=== PATIENT | male | born 1945 | race Caucasian/White ===

== ENCOUNTER → 2022-06-13 | Outpatient (CLI) | payer MEDICARE, SELFPAY | END | disposition home or self-care (01) | DX: I49.3 Ventricular premature depolarization (principal) | CPT/HCPCS: 93225; 93226 ==

== ENCOUNTER 2022-08-03 02:04 | Emergency (ER) | payer MEDICARE, SELFPAY ==
[2022-08-03 02:05] VITALS: BP 169/70; PULSE 90; RESP 19; TEMP 36.5; O2SAT 95; BMI 29.6
[2022-08-03 02:07] VITALS: O2SAT 97
[2022-08-03] MEDS: dexAMETHasone 10 MG/ML Vial PO.IVFORM (03:16)
[2022-08-03] MEDS: Ipratropium/Albuterol Sulfate 3 ML AMPUL.NEB INHALATION (03:22)
[2022-08-03 03:23] VITALS: PULSE 69; RESP 16
--- NOTE | 2022-08-03 03:31 | RAD_ITS ---
INDICATION: cough EXAMINATION/TECHNIQUE: X-RAY - XR Chest 2 Views COMPARISON: FINDINGS: LINES/DEVICES: None. LUNGS: No consolidation, edema or effusion. No pneumothorax. MEDIASTINUM AND CARDIOVASCULAR STRUCTURES: Cardiac silhouette not enlarged. Central airways and mediastinal contour are unremarkable. BONES AND SOFT TISSUES: Unremarkable. RAD/Chest PA and Lateral IMPRESSION: No radiographic evidence of acute cardiopulmonary disease. Electronically Signed: Chandler Chinchilla MD at 3:49 EDT ,
--- NOTE | 2022-08-03 04:12 | EX.ED.DYSGE1 ---
HPI History of Present Illness Chief Complaint: Shortness of Breath Narrative Narrative: Patient is a 76-year-old male with history of hypertension. He states that he has been seeing his family doctor secondary to persistent nasal congestion and cough. He does report remote history of smoking but denies any history of COPD or need for supplemental oxygen. He denies any known sick contacts fevers or chills. He states his family at her place him on medications but despite doing this there has been no symptom improvement and has been having difficulty sleeping secondary to the congestion and cough and therefore comes in for evaluation [facility] Medical History (Updated 08/03/22 @ 04:[address] Haroon Pinon, DO) Hypertension Home Medications albuterol sulfate 90 mcg/actuation aerosol inhaler (Ventolin HFA) 2 puff inhalation Q4H PRN PRN Wheezing #1 device 08/03/22 [Rx Last Taken Unknown] cetirizine 10 mg tablet 10 mg PO DAILY 08/03/22 [History Last Taken Unknown] hydrocodone-homatropine 5 mg-1.5 mg/5 mL (5 mL) oral syrup (Hycodan) 5 ml PO Q6H PRN cough 6 days #80 mL 08/03/22 [Rx Last Taken Unknown] losartan 50 mg tablet 50 mg PO DAILY 08/03/22 [History Last Taken Unknown] prednisone 20 mg tablet 20 mg PO DAILY 7 days #7 tabs 08/03/22 [Rx Last Taken Unknown] promethazine 6.25 mg-codeine 10 mg/5 mL syrup 5 ml PO 4X/DAY PRN PRN cough 7 days #140 mL 08/03/22 [Rx Last Taken Unknown] Allergy/AdvReac Type Severity Reaction Status Date / Time No Known Allergies Allergy Verified 08/03/22 02:07 Social History Smoking Status: Never smoker [facility] ED Constitutional Constitutional ED: Denies chills or fever(s) ENT ENT ED: Reports rhinorrhea and sore throat Cardiovascular Cardiovascular: Denies chest pain Respiratory/Chest Respiratory/Chest: Reports cough; Denies dyspnea Gastrointestinal Gastrointestinal: Denies abdominal pain, diarrhea, nausea or vomiting Genitourinary Genitourinary ED: Denies dysuria Musculoskeletal Musculoskeletal: Denies myalgias Integumentary Denies rash Neurologic Neurologic: Denies headache(s) Hematologic/Lymphatic Hematologic/Lymphatic: Denies easy bleeding or easy bruising EXAM Physical Exam Const Vital Signs: 08/03/22 02:05 08/03/22 02:07 08/03/22 03:23 Temperature 97.7 F L Temperature Source Temporal Pulse Rate 90 69 Respiratory Rate 19 H 16 Respiratory Effort Normal Non-Labored Respiratory Depth Normal Respiratory Pattern Normal Normal Blood Pressure 169/70 H Blood Pressure Mean 103 Pulse Ox 95 Oxygen Delivery Method Room Air Room Air Positive well nourished and well developed General Appearance ED: well developed HEENT Reports moist mucous membranes HEENT Narrative: Nasal mucosa is hyperemic and boggy with enlarged inferior nasal turbinate There is cobblestoning the posterior pharynx consistent with sinus drainage but no airway edema or compromise Eyes PERRL and EOMs intact bilaterally Neck supple and no JVD Chest Wall palpation of chest normal Chest Narrative: No bony deformity or crepitus noted Resp normal respiratory effort Resp Narrative: Breath sounds are slightly diminished throughout with diffuse expiratory wheeze however no nasal flaring retractions tachypnea or accessory muscle use Cardio regular rate and regular rhythm Extremity normal to inspection Extremity Narrative: No asymmetric edema no pitting edema negative Homans' sign bilaterally Neuro oriented x3 and CN's II-XII intact bilaterally Sensorium / Orientation: alert Psych mental status grossly normal Skin no rashes or lesions noted MDM MDM MDM Narrative Medical decision making narrative: Patient presented to the ER in no acute respiratory distress with stable vital. He reported a remote history of smoking but no previous diagnosis of COPD or emphysema or need for supplemental oxygen. On exam he has diffuse expiratory wheezing concerning for lung inflammation that can be seen with upper respiratory tract infection versus pneumonia. As he is in no distress with stable pulse ox and normal temperature I do not feel need for treatment other than chest x-ray and breathing medication. Chest x-ray revealed no obvious lung pathology and that the patient was treated with steroids and albuterol he did have improvement of his breath sounds and his work of breathing remained normal. At this time symptoms are most consistent with lung inflammation from a viral source. However as he does not have respiratory distress or need for supplemental oxygen he will be given symptomatic medications and discharged home. Radiography Diagnostic Testing: Clinical Impression(s) from Imaging Studies Chest X-Ray 08/03/22 03:31 IMPRESSION: No radiographic evidence of acute cardiopulmonary disease. Electronically Signed: Chandler Chinchilla MD at 3:49 EDT , Chest x-ray as interpreted by the emergency medicine physician reveals no acute infiltrate pneumothorax or pleural effusion Discharge Plan Triage Chief Complaint: Shortness of Breath ED Provider: Haroon Pinon Dx/Rx/DC Orders Clinical Impression: Upper respiratory tract infection, Bronchospasm Instructions: ED URI, Viral W/ Wheezing (Adult) Prescriptions: New albuterol sulfate [Ventolin HFA] 90 mcg/actuation HFA aerosol inhaler 2 puff inhalation Q4H PRN PRN (Reason: Wheezing) Qty: 1 0RF prednisone 20 mg tablet 20 mg PO DAILY 7 Days Qty: 7 0RF promethazine-codeine 6.25-10 mg/5 mL syrup 5 ml PO 4X/DAY PRN PRN (Reason: cough) 7 Days Qty: 140 0RF hydrocodone-homatropine [Hycodan] 5-1.5 mg/5 mL (5 mL) syrup 5 ml PO Q6H PRN (Reason: cough) 6 Days Qty: 80 0RF No Action losartan 50 mg tablet 50 mg PO DAILY Label Comments: take 1 tablet by mouth once daily cetirizine 10 mg tablet 10 mg PO DAILY Label Comments: take 1 tablet by mouth once daily Primary Care Provider: TRISHA ART Referrals: TRISHA ART [Other] Disposition Disposition: Home, Self Care Discharge Date/Time: 08/03/22 04:21
== END 2022-08-03 04:21 | disposition home or self-care (01) ==
PROVIDERS: Emergency Provider Emergency Medicine; Visit Provider Emergency Medicine
DX: J06.9 Acute upper respiratory infection, unspecified (principal); I10 Essential (primary) hypertension; Z87.891 Personal history of nicotine dependence; J98.01 Acute bronchospasm
CPT/HCPCS: 71046; 94640; 99283

== ENCOUNTER 2022-09-04 19:18 | Emergency (ER) | payer MEDICARE, SELFPAY ==
[2022-09-04] VITALS (7 sets, daily range): BP systolic 147–170; BP diastolic 64–86; PULSE 78–89; RESP 18–19; TEMP 36.3; O2SAT 88–96; BMI 29.7
--- NOTE | 2022-09-04 19:21 | RAD_ITS ---
STUDY: X-RAY CHEST REASON FOR EXAM: Male, 76 years old. SOB TECHNIQUE: Single AP portable view of the chest. COMPARISON: 08/03/2022 FINDINGS: The lungs are clear and expanded. There is no demonstrated pleural abnormality. Normal size heart. Normal mediastinum and miladys. Normal visualized pulmonary arteries. Normal visualized aortic arch and descending thoracic aorta. Normal visualized thoracic spine. Normal visualized ribs, clavicles, and shoulders. There is no demonstrated abnormality of the visualized soft tissue structures of the upper abdomen. RAD/Chest 1 View (Portable) IMPRESSION: Normal x-ray examination of the chest. Electronically Signed: Jermain Thurman MD at 19:51 EDT ,
--- NOTE | 2022-09-04 19:40 | ED.VIS.DYS ---
HPI <MIGUEL ANGEL Manjarrez - Last Filed: 09/04/22 20:06> History of Present Illness Chief Complaint: Shortness of Breath Narrative Narrative: 76-year-old male presents with shortness of breath. He has had sinus congestion, cough and shortness of breath since December 2021. He saw a hide dyer and had a normal CT scan of his chest. He is scheduled to have a CT of his sinuses and they want to order PFTs. He uses an albuterol inhaler but it does not really help. He states he has never been a smoker and does not have a diagnosis of COPD. Today he was walking and started to cough and feel more short of breath. No chest pain. He states he was here about a month ago with the same symptoms and got a breathing treatment and steroid which helped. PENDING SALE TO [facility] <MIGUEL ANGEL Manjarrez - Last Filed: 09/04/22 20:06> PENDING SALE TO [facility] Medical History Hypertension Infected sebaceous cyst of skin Home Medications albuterol sulfate 90 mcg/actuation aerosol inhaler (Ventolin HFA) 2 puff inhalation Q4H PRN PRN Wheezing #1 device 08/03/22 [Rx Last Taken Unknown] losartan 50 mg tablet 50 mg PO DAILY 08/03/22 [History Last Taken Unknown] prednisone 20 mg tablet 20 mg PO DAILY 7 days #7 tabs 08/03/22 [Rx Last Taken Unknown] promethazine 6.25 mg-codeine 10 mg/5 mL syrup 5 ml PO 4X/DAY PRN PRN cough 7 days #140 mL 08/03/22 [Rx Last Taken Unknown] amoxicillin 875 mg-potassium clavulanate 125 mg tablet 1 tab PO BID #20 tabs 08/16/22 [Rx Last Taken Unknown] prednisone 20 mg tablet 40 mg (2 x 20 mg) PO DAILY 4 days #8 tabs 09/04/22 [Rx Last Taken Unknown] Allergy/AdvReac Type Severity Reaction Status Date / Time No Known Allergies Allergy Verified 09/04/22 19:21 Social History Smoking Status: Never smoker ROS <MIGUEL ANGEL Manjarrez - Last Filed: 09/04/22 20:06> ROS ED ROS Narrative Constitutional: Negative for fever, chills, malaise. CVS: Negative for palpitations, chest pain, syncope. Respiratory: Positive for shortness of breath, cough. Negative for orthopnea. GI: Negative for abdominal pain, nausea, vomiting. EXAM <MIGUEL ANGEL Manjarrez - Last Filed: 09/04/22 20:06> Physical Exam Narrative Exam Narrative: CONST: Patient sitting in no acute distress. EYES: Normal inspection. NECK: Normal inspection. No retractions, no JVD. RESP: Speaking in full sentences in no respiratory distress. On auscultation there is diffuse expiratory wheezing. CVS: Regular rate and rhythm, no murmur, no gallop. SKIN: Color normal, no rash, warm, dry, intact. EXTREMITIES: Normal appearance, no pedal edema. NEURO: Oriented x4. PSYCH: Normal affect. Const Vital Signs: 09/04/22 19:19 09/04/22 19:56 09/04/22 20:04 Temperature 97.4 F L Temperature Source Temporal Pulse Rate 89 81 Respiratory Rate 19 H 18 Respiratory Effort Short of Breath Respiratory Depth Deep Respiratory Pattern Tachypnea Blood Pressure 170/86 H Blood Pressure Mean 114 Pulse Ox 92 Oxygen Delivery Method Room Air Room Air Oxygen Flow Rate (L/min) 09/04/22 21:10 09/04/22 21:15 Temperature Temperature Source Pulse Rate 78 Respiratory Rate 18 Respiratory Effort Respiratory Depth Respiratory Pattern Blood Pressure Blood Pressure Mean Pulse Ox 96 Oxygen Delivery Method Nasal Cannula Oxygen Flow Rate (L/min) [address] <Dr. Forrest Rangel DO - Last Filed: 09/04/22 21:35> Physical Exam Const Vital Signs: 09/04/22 19:19 09/04/22 19:56 09/04/22 20:04 Temperature 97.4 F L Temperature Source Temporal Pulse Rate 89 81 Respiratory Rate 19 H 18 Respiratory Effort Short of Breath Respiratory Depth Deep Respiratory Pattern Tachypnea Blood Pressure 170/86 H Blood Pressure Mean 114 Pulse Ox 92 Oxygen Delivery Method Room Air Room Air Oxygen Flow Rate (L/min) 09/04/22 21:10 09/04/22 21:15 Temperature Temperature Source Pulse Rate 78 Respiratory Rate 18 Respiratory Effort Respiratory Depth Respiratory Pattern Blood Pressure Blood Pressure Mean Pulse Ox 96 Oxygen Delivery Method Nasal Cannula Oxygen Flow Rate (L/min) 2 MDM <MIGUEL ANGEL Manjarrez - Last Filed: 09/04/22 20:06> MDM MDM Narrative Medical decision making narrative: Patient has had 9 months of cough, congestion, wheezing and shortness of breath. He is being worked up by pulmonology. Symptoms worsened today when he was walking down a coughing fit. He has no chest pain. He appears well and nontoxic. Vital signs stable. He is able to speak in full sentences in no distress with no retractions but on auscultation does have diffuse expiratory wheezing. CXR shows no acute process. He was treated with prednisone and a DuoNeb with improvement and will be prescribed additional 4 days of steroids for home. He will follow-up with pulmonology as scheduled and was discharged in stable condition. Radiography Diagnostic Testing: Clinical Impression(s) from Imaging Studies Chest X-Ray 09/04/22 19:21 IMPRESSION: Normal x-ray examination of the chest. Electronically Signed: Jermain Thurman MD at 19:51 EDT Reading Location ID and State: [id number] / [employer] , Service support , ED attending interpretation of 2- view chest x-ray shows normal heart size, no acute infiltrate, edema, or effusion. <Dr. Forrest Rangel, DO - Last Filed: 09/04/22 21:35> MDM Radiography Diagnostic Testing: Clinical Impression(s) from Imaging Studies Chest X-Ray 09/04/22 19:21 IMPRESSION: Normal x-ray examination of the chest. Electronically Signed: Jermain Thurman MD at 19:51 EDT , Treatment and Re-Evaluation :: I have personally performed a face to face assessment of the patient and have reviewed the RHODA Note. I performed a substantive portion of the visit including all aspects of the following. My claros findings include: History: Patient presents with shortness of breath and wheezing that has been getting progressively worse over the past few months. Patient states that he feels like he is wheezing in his chest. Patient states it has gotten better with prednisone in the past. Currently, the patient is not taking any prednisone. Patient states he is scheduled for CT scan of his sinuses. Patient states he was also instructed to obtain pulmonary function test which she has not scheduled yet. Patient denies any fevers or chills. Exam: Vital signs are stable. Patient is afebrile. Patient is in no acute distress. Oral mucosa is pink and moist. Neck is supple. Trachea is midline. There is no JVD. Heart was regular rate and rhythm. Lungs show diffuse expiratory wheezes. There is good respiratory effort noted. There are no retractions noted. Abdomen is soft. Bowel sounds are normal. There is no tenderness. Cranial nerves II through XII are intact. There are no focal motor or sensory deficits noted. Medical Decision Making: Patient was given a DuoNeb aerosol here. Differential diagnosis includes asthma, pneumonia, and viral upper respiratory infection. Chest x-ray will be obtained to assess for pneumonia. Portable 1 view chest x-ray was obtained. On my independent interpretation, lung smith are clear. There is normal cardiac silhouette. Bony thorax is normal. There is no acute process noted. Radiologist also interpreted the x-ray and agrees. Patient was given a dose of prednisone here. Patient will be given a prescription for prednisone. Patient was given a repeat DuoNeb aerosol. Patient was feeling better after this. Patient was instructed to follow-up with his primary care physician in 5 to 7 days. Patient understood and was agreeable with the plan. All questions were answered. Discharge Plan Triage Chief Complaint: Shortness of Breath ED Midlevel Provider: Skye Suggs ED Provider: Forrest Rangel Dx/Rx/DC Orders Clinical Impression: Bronchospasm Instructions: ED Bronchospasm (Adult) Prescriptions: New prednisone 20 mg tablet 40 mg PO DAILY 4 Days Qty: 8 0RF No Action amoxicillin-pot clavulanate 875-125 mg tablet 1 tab PO BID Qty: 20 0RF losartan 50 mg tablet 50 mg PO DAILY Patient Comments: take 1 tablet by mouth once daily albuterol sulfate [Ventolin HFA] 90 mcg/actuation HFA aerosol inhaler 2 puff inhalation Q4H PRN PRN (Reason: Wheezing) Qty: 1 0RF prednisone 20 mg tablet 20 mg PO DAILY 7 Days Qty: 7 0RF promethazine-codeine 6.25-10 mg/5 mL syrup 5 ml PO 4X/DAY PRN PRN (Reason: cough) 7 Days Qty: 140 0RF Primary Care Provider: Nava PhysicianMigdalia Primary Referrals: Care Physician,No Primary [Primary Care Provider] - Activity Restrictions/Additional Instructions: I prescribed prednisone which is a steroid to take over the next 4 days. Continue to use your inhaler and follow-up with the hide dyer. Turn to ER if symptoms worsen. Disposition Disposition: Home, Self Care
[2022-09-04] MEDS: Ipratropium/Albuterol Sulfate 3 ML AMPUL.NEB INHALATION ×2 (19:56→21:12)
[2022-09-04] MEDS: predniSONE 20 MG Tablet 40 MG PO (20:07)
--- NOTE | 2022-09-04 21:06 | ED.RN ---
Pt pulse ox 88% on RA before discharge. RN alerted PA, pt placed on 3L NC. 2nd breathing treatment ordered, respiratory called.
== END 2022-09-04 22:05 | disposition home or self-care (01) ==
PROVIDERS: Emergency Provider Emergency Medicine; Visit Provider Emergency Medicine
DX: J98.01 Acute bronchospasm (principal); I10 Essential (primary) hypertension; Z79.899 Other long term (current) drug therapy
CPT/HCPCS: 71045; 94640; 99283

== ENCOUNTER → 2022-12-02 | Outpatient (CLI) | payer MEDICARE, SELFPAY ==
--- NOTE | 2022-12-02 14:39 | RAD_ITS ---
HISTORY: cough, sob. TECHNIQUE: XR Chest 2 Views. COMPARISON: 09/04/2022. FINDINGS: CARDIOMEDIASTINAL BORDERS: Cardiac silhouette within normal limits in size. Mediastinal contour unremarkable. LUNGS: Radiographically clear. Mild hyperinflation. PLEURA: No pleural effusion or pneumothorax seen. OSSEOUS STRUCTURES: Degenerative change. RAD/Chest PA and Lateral IMPRESSION: No acute cardiopulmonary process identified. Electronically Signed: Marlin Johnson MD at 15:21 EDT ,
== END | disposition home or self-care (01) ==
PROVIDERS: Referring Provider Physician Assistant; Visit Provider Physician Assistant
DX: R05.9 Cough, unspecified (principal)
CPT/HCPCS: 71046

== ENCOUNTER → 2022-12-11 | Outpatient (CLI) | payer MEDICARE, SELFPAY ==
--- NOTE | 2022-12-11 08:32 | ECHOD_ITS ---
Reason For Study: SOB Procedure This was a 2D Doppler, Color Flow transthoracic echocardiogram. Exam performed in department. Left Ventricle Normal LV size. Left ventricular systolic function is normal. The estimated ejection fraction is 65 %. Stage 1 diastolic dysfunction. No regional wall motion abnormalities noted. Right Ventricle Normal RV size. Normal systolic function. Atria Normal left atrium. Normal right atrium. Mitral Valve Bileaflet diffuse mitral valve thickening. Mild (1+) eccentric mitral valve insufficiency. Tricuspid Valve Normal tricuspid valve. Mild (1+) tricuspid valve insufficiency. Pulmonary artery systolic pressure is 34 mmHg. Aortic Valve Trisinus/trileaflet aortic valve. Moderate focal aortic valve thickening. Mild (1+) aortic valve insufficiency. Pulmonic Valve Normal pulmonic valve. Great Vessels Mildly dilated aortic root. The pulmonary artery is normal size. Normal inferior vena cava. Pericardium/Pleural No pericardial effusion. MMode/2D Measurements & Calculations LVIDd: 4.8 cm IVSd: 1.1 cm Ao root diam: 3.7 cm LVIDs: 2.7 cm LVPWd: 1.1 cm RVDd: 3.6 cm FS: 42.8 % LAV(MOD-sp4): 59.0 ml LVAd ap4: 29.5 cm2 LVAd ap2: 25.2 cm2 LVLd ap4: 8.8 cm LVLd ap2: 8.3 cm EDV(MOD-sp4): 79.3 ml EDV(MOD-sp2): 63.5 ml EDV(sp4-el): 83.8 ml EDV(sp2-el): 64.6 ml LVAs ap4: 18.4 cm2 LVAs ap2: 14.2 cm2 LVLs ap4: 7.6 cm LVLs ap2: 7.2 cm ESV(MOD-sp4): 37.6 ml ESV(MOD-sp2): 25.0 ml ESV(sp4-el): 37.4 ml ESV(sp2-el): 23.7 ml EF(MOD-sp4): 52.6 % EF(MOD-sp2): 60.7 % EF(sp4-el): 55.3 % SV(MOD-sp4): 41.7 ml SV(MOD-sp2): 38.6 ml SV(sp4-el): 46.4 ml LA dimension(2D): 3.9 cm LA A4 area: 19.2 cm2 RA A4 area: 20.9 cm2 Time Measurements MV dec time: 0.22 sec Doppler Measurements & Calculations MV E max du: 89.1 cm/sec Lat Peak E' Du: 6.3 cm/sec Med Peak E' Du: 8.5 cm/sec MV A max du: 93.6 cm/sec E/E' lat: 14.2 E/E' med: 10.5 MV E/A: 0.95 MV dec slope: 409.8 cm/sec2 Ao V2 max: 127.2 cm/sec LV V1 max: 124.9 cm/sec Ao max P.5 mmHg LV V1 max P.2 mmHg Ao V2 mean: 88.6 cm/sec LV V1 mean P.0 mmHg Ao mean P.4 mmHg LV V1 mean: 82.1 cm/sec Ao V2 VTI: 25.9 cm LV V1 VTI: 25.9 cm AV (velocity ratio): 1.0 PA V2 max: 211.5 cm/sec TR max du: 281.1 cm/sec PA V2 mean: 137.9 cm/sec TR max P.6 mmHg ECHO/Echo Complete Interpretation Summary Normal LV size. Left ventricular systolic function is normal. The estimated ejection fraction is 65 %. Bileaflet diffuse mitral valve thickening. Mild (1+) eccentric mitral valve insufficiency. Stage 1 diastolic dysfunction. Ordering Physician: JOSE BOUDREAUX Referring Physician: JOSE BOUDREAUX Performed By: Maritza Moon, LILLIE, RVT
== END | disposition home or self-care (01) ==
LOC: CVS 08:31
PROVIDERS: Referring Provider Nurse Practitioner Acute Care; Visit Provider Nurse Practitioner Acute Care
DX: R06.02 Shortness of breath (principal); I49.3 Ventricular premature depolarization
CPT/HCPCS: 93306

== ENCOUNTER → 2023-01-30 | Outpatient (CLI) | payer MEDICARE, SELFPAY ==
[2023-01-30 12:46] LABS: Absolute Neutrophil Count 7.2 X10^3/uL (2.0-7.7); Basophil# 0.06 X10^3/uL; Basophil% 0.6 % (0-1); Eosinophil# 0.19 X10^3/uL; Eosinophils% 1.9 % (0-5); Hematocrit 39.8 % (40-54); Hemoglobin 12.9 g/dL (13.0-16.5); Mean Corp Hgb Conc 32.4 g/dL (32-36); Mean Corpuscular Hgb 32.2 pg (27.0-32.0); Mean Corpuscular Volume 99.3 fL (80-94); Mean Platelet Vol. 9.9 fl (6.2-12.0); Monocyte# 0.71 X10^3/uL; Monocyte% 7.1 % (0-10); NRBC Flagged by Analyzer 0 % (0-5); Neutrophil # 7.15 X10^3/uL (2.7-7.7); Neutrophil % 71.5 % (47-70); Platelet Count 248 K/mm3 (150-450); RBC Distribution Width CV 13.4 % (11.6-14.6); RBC Distribution Width SD 49.1 fl (35.1-43.9); Red Blood Count 4.01 M/mm3 (4.6-6.2)
[2023-01-30 12:58] LABS: Erythrocyte Sedimentation Rate 3 mm/hr (0-20)
[2023-01-30 13:34] LABS: CRP < 2.90 mg/L (0.0-3.0); Rheumatoid Factor < 10.0 IU/mL (<15)
[2023-02-02 14:08] LABS: Angiotensin Convert Enzyme 22 U/L (14-82); CCP IgG Antibodies 33 units (0-19)
== END | disposition home or self-care (01) ==
LOC: MTLAB 09:58
PROVIDERS: Referring Provider Internal Medicine Pulmonary Disease; Visit Provider Internal Medicine Pulmonary Disease
DX: R05.9 Cough, unspecified (principal); R06.02 Shortness of breath
CPT/HCPCS: 36415; 82164; 85025; 85652; 86140; 86200; 86431

== ENCOUNTER → 2023-07-06 | Outpatient (CLI) | payer MEDICARE, SELFPAY ==
[2023-07-06 15:53] LABS: Absolute Lymphocyte Count 2.51 X10^3/uL (0.83-4.51); Absolute Neutrophil Count 5.4 X10^3/uL (2.0-7.7); Basophil# 0.06 X10^3/uL; Basophil% 0.6 % (0-1); Eosinophil# 0.79 X10^3/uL; Eosinophils% 8.2 % (0-5); Hematocrit 42.9 % (40-54); Hemoglobin 14.2 g/dL (13.0-16.5); Lymphocyte # 2.51 X10^3/ul (0.83-4.51); Mean Corp Hgb Conc 33.1 g/dL (32-36); Mean Corpuscular Hgb 33.4 pg (27.0-32.0); Mean Corpuscular Volume 100.9 fL (80-94); Mean Platelet Vol. 10.3 fl (6.2-12.0); Monocyte# 0.89 X10^3/uL; Monocyte% 9.2 % (0-10); NRBC Flagged by Analyzer 0 % (0-5); Neutrophil # 5.37 X10^3/uL (2.7-7.7); Neutrophil % 55.7 % (47-70); Platelet Count 242 K/mm3 (150-450); RBC Distribution Width CV 12.4 % (11.6-14.6); Red Blood Count 4.25 M/mm3 (4.6-6.2); White Blood Count 9.7 K/mm3 (4.4-11.0)
== END | disposition home or self-care (01) ==
PROVIDERS: Referring Provider Internal Medicine Pulmonary Disease; Visit Provider Internal Medicine Pulmonary Disease
DX: R05.3 Chronic cough (principal); J30.9 Allergic rhinitis, unspecified
CPT/HCPCS: 36415; 85025

== ENCOUNTER 2023-10-23 07:45 | Day surgery (SDC) | payer MEDICARE, SELFPAY ==
[2023-10-23 08:06] VITALS: BP 171/84; PULSE 64; RESP 16; TEMP 36.1; O2SAT 100; BMI 29.7
[2023-10-23] MEDS: Lactated Ringers 1,000 ML 15 ML IV (08:15)
--- NOTE | 2023-10-23 08:34 | PCM.PRE.AN2 ---
ASA Classification* ASA Classification ASA Classification: 2 Assessment & Plan Anesthesia* Anesthesia Assessment Anesthesia Assessment: Discussed sedation and/or anesthesia options, risks, benefits, and alternatives with patient/parents/legal guardian/POA. Questions invited. The patient/parents/legal guardian/POA seems to understand and agrees to proceed with anesthesia plan. Reviewed the physical assessment, medical history, allergy history and patient home medications list prior to surgery/procedure/anesthetic and documented any changes. Performed airway and anesthesia risk assessments. Anesthesia Type Anesthesia Type: MAC History Source History Obtained from:: Patient and Chart Anesthesia Focused Assessment* Temperature: 97 F Pulse Rate: 64 Blood Pressure: 171/84 Respiratory Rate: 16 Pulse Ox: 100 Oxygen Delivery Method: Room Air Airway Assessment Mouth opens: >3 cm Mallampati Score: III Teeth Condition: Chipped/Broken (Patient has a couple chipped teeth on the right side molars upper and lower.) Neck Range of motion (ROM): Full ROM Focused Labs Anesthesia Preop lab: CBC WBC 9.7 K/mm3 (4.4-11.0) 07/06/23 13:35 RBC 4.25 M/mm3 (4.6-6.2) L 07/06/23 13:35 Hgb 14.2 g/dL (13.0-16.5) 07/06/23 13:35 Hct 42.9 % (40-54) 07/06/23 13:35 Plt Count 242 K/mm3 (150-450) 07/06/23 13:35 CHEMISTRY COAG Pre-Assessment Diagnosis/Proposed Procedure Planned Operative Procedure(s): CSCOPE OA Anesthesia History Anesthesia History - survey research professor: Anesthesia History - survey research professor Hx Hospitalization No 10/20/23 10:36 Any Problems With Anesthesia No 10/20/23 10:36 Cholinesterase deficiency No 10/20/23 10:36 You/Your Family Experience No 10/20/23 10:36 fever (hyperthermia) with Relationship Recent Exposure to Contagious No 10/23/23 08:06 Disease Does patient have nerve No 10/20/23 10:36 stimulator Patient instructed to have device shut off --Does patient have Pacemaker No 10/23/23 08:06 or ICD? When Was Last Pacemaker Check QUESTION #4 FULL TEXT: You/Your Family Experience fever (hyperthermia) with Anesthesia Last Oral Intake Last Oral intake: Last Oral Intake NPO since 04:00 10/23/23 08:06 Meds taken in AM with sips of Yes 10/23/23 08:06 water? Meds patient instructed to see mar 10/23/23 08:06 take am of surgery Any additional information?: Yes NPO since: 04:00 (Patient finished prep at 4 AM) Meds taken in AM with sips of water?: Yes PONV PONV - survey research professor: PONV - survey research professor Female No 10/20/23 10:36 HX of Motion Sickness No 10/20/23 10:36 HX of N/V After Surgery No 10/20/23 10:36 Non-Smoker Yes 10/20/23 10:36 Duration of Surgery greater No 10/20/23 10:36 than 60 minutes Number of Risk Factors 1 10/20/23 10:36 PONV Score Low Risk 10/20/23 10:36 Height & Weight Height & Weight: Anesthesia: Height & Weight Height 5 ft 8 in 10/23/23 08:06 Weight: 88.904 kg 10/23/23 08:06 Body Mass Index (BMI) 29.7 10/23/23 08:06 Respiratory Assessment Respiratory Assessment - survey research professor: Respiratory Tract Infection Hx - survey research professor Hx Respiratory Tract Infection No 10/20/23 10:36 STOP Sleep Apnea STOP Sleep Apnea - survey research professor: STOP Sleep Apnea - survey research professor Hx Hypertension Yes: CONTROLLED WITH MED 10/20/23 10:36 Hx Sleep Apnea No 10/20/23 10:36 CPAP BIPAP Do you snore loudly (louder No 10/20/23 10:36 than talking or can be heard Do you often feel tired/ Yes 10/20/23 10:36 fatigued/ sleepy during daytime? Has anyone observed you stop No 10/20/23 10:36 breathing during sleep? STOP Results Positive 10/20/23 10:36 QUESTION #5 FULL TEXT : Do you snore loudly (louder than talking or can be heard through closed doors)? Tobacco Use History Tobacco Use History - survey research professor: Tobacco Use History - survey research professor Tobacco Use Smoking Status Never smoker 10/20/23 10:36 Hx Tobacco Use No 10/20/23 10:36 Years Smoking Packs Smoked per Day Smoking Cessation Date was within the last 15 years Hx Smoking Cessation Date Hx Smoking Cessation Counseling Hematologic Medial History Hematologic Hx - survey research professor: Hematologic Medical Hx - technical manager Hx of Blood Transfusion No 10/20/23 10:36 Hx of Transfusion in last 3 No 10/20/23 10:36 Months Date of Last Transfusion (if within last 3 months) Ever experience any problems No 10/20/23 10:36 with transfusion(s)? Specify any problems Hx of Preganancy in last 3 N/A 10/20/23 10:36 Months Nurse Filling Out Transfusion DSCHRIBER 10/20/23 10:36 & Questions: Date: 10/20/23 10/20/23 10:36 Time: 10:37 10/20/23 10:36 Patient unable to answer at this time (ie. confused, unrespo /Reproduction History /Reproductive History - survey research professor: /Reproductive Hx- survey research professor Hx Now No 10/20/23 10:36 Gestational Age (in weeks): EDC: Hx Hx Para Hx Section SAB No 10/20/23 10:36 Active Medications Active Medications: Current Medications Generic Name Dose Route Start Last Admin Trade Name Freq PRN Reason Stop Dose Admin Lactated Ringer's 1,000 mls @ 15 mls/hr 10/23/23 08:00 10/23/23 08:15 IV 15 mls/hr .Q48H ISHAAN Administration PFSH Medical History (Updated 10/20/23 @ 10:44 by Trang Brewster) Wears glasses Alcohol use History of steroid therapy Arthritis Easy bruising Back pain Former smoker Asthma Leg cramps Cardiology follow-up encounter History of Holter monitoring History of echocardiogram Hyperlipidemia Wheezing Shortness of breath Infected sebaceous cyst of skin Hypertension Home Medications ?Medication ?Instructions ?Recorded ?Last Taken ?Type aspirin 81 mg tablet,delayed 81 mg PO DAILY 09/01/23 10/18/23 History release (Adult Low Dose Aspirin) losartan 50 mg tablet 100 mg PO DAILY 09/01/23 10/23/23 History albuterol sulfate 5 mg/mL(0.5 %) 2.5 mg inhalation Q4H PRN 10/20/23 Unknown History solution for nebulization shortness of breath or wheezing cholecalciferol (vitamin D3) 25 25 mcg PO DAILY 10/20/23 Unknown History mcg (1,000 unit) tablet (Vitamin D3) mecobalamin (vitamin B12) 1,000 1,000 mcg sublingual DAILY 10/20/23 Unknown History mcg disintegrating tablet,sublingual prednisone 2.5 mg tablet 2.5 mg PO .EVERY 3 DAYS 10/20/23 Unknown History zinc gluconate 50 mg tablet 50 mg PO DAILY 10/20/23 Unknown History Allergy/AdvReac Type Severity Reaction Status Date / Time [id number] Reductase AdvReac INTOLERANCE Verified 10/23/23 08:05 Inhibitor Family History (Updated 09/01/23 @ 10:28 by Lili Stanton) Father Colon cancer Prostate cancer Brother Colon cancer Surgical History (Updated 10/20/23 @ 10:44 by Trang Brewster) Hx of arthroscopic knee surgery Hx of colonoscopy Social History (Updated 09/01/23 @ 10:30 by Lili Stanton) household members: none and other details: current occupational status: retired Smoking Status: Never smoker Smokeless tobacco user: snuff substance use type: does not use Review of Systems (Anesthesia) ROS Narrative System reviewed and no additional complaints, except as documented.
[2023-10-23 08:39] VITALS: BP 171/84; PULSE 64; RESP 16; TEMP 36.1; O2SAT 100
--- NOTE | 2023-10-23 08:41 | H&P.OPEN ---
HPI - General HPI Narrative WILLY PITT, is a 77 M who presents For screening colonoscopy. Patient had his last colonoscopy about 10 years ago. He denies abdominal pain or blood in the stool. [facility] Medical History (Updated 10/20/23 @ 10:44 by Trang Brewster) Wears glasses Alcohol use History of steroid therapy Arthritis Easy bruising Back pain Former smoker Asthma Leg cramps Cardiology follow-up encounter History of Holter monitoring History of echocardiogram Hyperlipidemia Wheezing Shortness of breath Infected sebaceous cyst of skin Hypertension Home Medications ?Medication ?Instructions ?Recorded ?Last Taken ?Type aspirin 81 mg tablet,delayed 81 mg PO DAILY 09/01/23 10/18/23 History release (Adult Low Dose Aspirin) losartan 50 mg tablet 100 mg PO DAILY 09/01/23 10/23/23 History albuterol sulfate 5 mg/mL(0.5 %) 2.5 mg inhalation Q4H PRN 10/20/23 Unknown History solution for nebulization shortness of breath or wheezing cholecalciferol (vitamin D3) 25 25 mcg PO DAILY 10/20/23 Unknown History mcg (1,000 unit) tablet (Vitamin D3) mecobalamin (vitamin B12) 1,000 1,000 mcg sublingual DAILY 10/20/23 Unknown History mcg disintegrating tablet,sublingual prednisone 2.5 mg tablet 2.5 mg PO .EVERY 3 DAYS 10/20/23 Unknown History zinc gluconate 50 mg tablet 50 mg PO DAILY 10/20/23 Unknown History Allergy/AdvReac Type Severity Reaction Status Date / Time [id number] Reductase AdvReac INTOLERANCE Verified 10/23/23 08:05 Inhibitor Family History (Updated 09/01/23 @ 10:28 by Lili Stanton) Father Colon cancer Prostate cancer Brother Colon cancer Surgical History (Updated 10/20/23 @ 10:44 by Trang Brewster) Hx of arthroscopic knee surgery Hx of colonoscopy Social History (Updated 09/01/23 @ 10:30 by Lili Stanton) household members: none and other details: current occupational status: retired Smoking Status: Never smoker Smokeless tobacco user: snuff substance use type: does not use Past Medical/Surgical History Planned Operation Planned Operative Procedure(s): CSCOPE OA Previous Hospitalizations/Surgeries HX Hospitalizations: No Any Problems With Anesthesia: No You/Your Family Experience Fever (Hyperthermia) With Anes: No Cholinesterase deficiency: No Cardiovascular Hx Hypertension: Yes (CONTROLLED WITH MED) Respiratory Hx Sleep Apnea: No Hx Respiratory Tract Infection/Cold (presently): No Do You Snore Loudly (louder than talking or can be heard): No Do You Often Feel Tired/ Fatigued/ Sleepy Dring Daytime?: Yes Has Anyone Observed You Stop Breathing During Sleep?: No Result (for STOP score): Positive Smoking Status: Never smoker Neurological Does patient have nerve stimulator: No Reproduction : No Miscellaneous Recent Exposure to Contagious Disease: No Allergies Qvteyaj-FGG-NlF Reductase Inhibitor Adverse Reaction (Verified 10/23/23 08:05) INTOLERANCE Discharge Is Pt Admitted From a Residential, or a Senior Care: No After D/C, Where Do you Plan to Go: Return Home Vital Signs Vital Signs Vital Signs: 10/23/23 08:06 10/23/23 08:06 10/23/23 08:39 Temperature 97 F L 97 F L Temperature Source Temporal Pulse Rate 64 64 Respiratory Rate 16 16 Respiratory Pattern Normal Blood Pressure 171/84 H 171/84 H Blood Pressure Mean 113 Blood Pressure Source Monitor Blood Pressure Position Semi-Fowlers Blood Pressure Location Right Arm Pulse Ox 100 100 Oxygen Delivery Method Room Air Room Air Weight Weight: 196 lb Body Mass Index (BMI) 29.7 Physical Exam Const alert and oriented x3 HEENT normocephalic Eyes PERRL Resp normal respiratory effort and normal air movement Cardio regular rate and regular rhythm GI soft to palpation, non-tender and non-distended Extremity normal to inspection Assessment & Plan Assessment/Plan (1) Encounter for screening for malignant neoplasm of colon: PLAN: I explained endoscopy in detail to the patient. I explained the risks including but not limited to stroke or heart attack with anesthesia, perforation of the GI tract, bleeding, infection. I explained that any of these could necessitate further emergency surgery. The patient understands and all questions were answered sufficiently. The patient wishes to proceed with procedure. Joseluis Castro MD Pager: [facility] [address] [place] [address], [address] [place] [address] Office: Surgery Risks - Colonoscopy Risks Include but are not Limited To: Risks include but are not limited to: Bleeding, perforation requiring further surgery, inability to complete colonoscopy requiring barium enema.
--- NOTE | 2023-10-23 09:07 | OP.COLON_ITS ---
Patient Name: Logan James Procedure Date: 10/23/2023 8:47 AM Date of : 1945 Age: 77 Procedure: Colonoscopy Indications: Screening for colorectal malignant neoplasm Providers: Joseluis Castro MD Medicines: Propofol per Anesthesia Patient Profile: This is a 77 year old male. Refer to note in patient chart for documentation of history and physical. Last Colonoscopy: 10 years ago. Complications: No immediate complications. Procedure: Pre-Anesthesia Assessment: - Prior to the procedure, a History and Physical was performed, and patient medications and allergies were reviewed. The patient's tolerance of previous anesthesia was also reviewed. The risks and benefits of the procedure and the sedation options and risks were discussed with the patient. All questions were answered, and informed consent was obtained. Prior Anticoagulants: The patient has taken no anticoagulant or antiplatelet agents except for aspirin. After reviewing the risks and benefits, the patient was deemed in satisfactory condition to undergo the procedure. After I obtained informed consent, the scope was passed under direct vision. Throughout the procedure, the patient's blood pressure, pulse, and oxygen saturations were monitored continuously. The Colonoscope was introduced through the anus and advanced to the cecum, identified by appendiceal orifice and ileocecal valve. The colonoscopy was performed without difficulty. The patient tolerated the procedure well. The quality of the bowel preparation was good. The ileocecal valve, appendiceal orifice, and rectum were photographed. Scope In: 8:51:56 AM Scope Withdrawal Time 0 hours 6 minutes 17 seconds Scope Out: 9:05:15 AM Total Procedure Duration Time 0 hours 13 minutes 19 seconds Findings: The entire examined colon appeared normal on direct and retroflexion views. Impression: - The entire examined colon is normal on direct and retroflexion views. - No specimens collected. Recommendation: - Discharge patient to home. - Resume previous diet. - Continue present medications. - Repeat colonoscopy is not recommended due to current age (66 years or older) for screening purposes. Procedure Code(s): --- Professional --- 16591, Colonoscopy, flexible; diagnostic, including collection of specimen(s) by brushing or washing, when performed (separate procedure) Diagnosis Code(s): --- Professional --- Z12.11, Encounter for screening for malignant neoplasm of colon CPT copyright 2021 [employer]. All rights reserved. The codes documented in this report are preliminary and upon engineering manager review may be revised to meet current compliance requirements. Joseluis Castro MD 10/23/2023 9:07:39 AM This report has been signed electronically. Number of Addenda: 0 Note Initiated On: 10/23/2023 8:47 AM
--- NOTE | 2023-10-23 09:08 | OP.CCLET_ITS ---
10/23/2023 Jace Bright Re : Colonoscopy procedure for Logan Lopez Deangelo This procedure was performed on Monday, October 23, 2023. My impressions and recommendations are as follows: Impressions : - The entire examined colon is normal on direct and retroflexion views. - No specimens collected. Recommendations : - Discharge patient to home. - Resume previous diet. - Continue present medications. - Repeat colonoscopy is not recommended due to current age (66 years or older) for screening purposes. My findings are described in the full procedure note, which is enclosed. If I can be of further assistance, please feel free to contact me at Doctor phone number(s): , Work: . Sincerely, Joseluis Castro MD 10/23/2023 9:07:39 AM This report has been signed electronically.
[2023-10-23 09:10] VITALS: BP 140/94; BP 171/84; PULSE 90; PULSE 95; RESP 16; RESP 18; TEMP 36.1; O2SAT 96; O2SAT 97
--- NOTE | 2023-10-23 09:10 | PCM.POST.ANE ---
Anesthesia: Postop Eval I Current Vital Signs Temperature: 97 F Pulse Rate: 95 Blood Pressure: 140/94 Respiratory Rate: 18 Pulse Ox: 97 Assessment Airway patent: Yes Spontaneous unlabored respirations: Yes nausea: No Vomiting: No Anesthesia Complication: No Fluid Hydration Crystalloid volume administer (ml): 500 Total IV fluid infused: 500 Progress Note Anesthesia document: Postop Eval 1 completed: Yes
[2023-10-23 09:15] VITALS: BP 112/78; BP 171/84; PULSE 94; RESP 16; O2SAT 94
[2023-10-23 09:20] VITALS: BP 138/93; BP 171/84; PULSE 88; RESP 16; TEMP 36.3; O2SAT 97
[2023-10-23 09:22] VITALS: BP 171/84
--- NOTE | 2023-10-23 12:49 | POSTOPAN2_ITS ---
Anesthesia Postop Eval I Sum Postop Eval Completion status Anesthesia document: Postop Eval 1 completed: Yes Anesthesia Postop Eval I Summary Anesthesia Postop Eval I Summary: Anesthesia Postop Eval I: Assessment Summary Airway patent Yes 10/23/23 09:10 [email or web address] Spontaneous unlabored Yes 10/23/23 09:10 PLUMBER [email or web address] respirations Mental status nausea No 10/23/23 09:10 PLUMBER [email or web address] Vomiting No 10/23/23 09:10 PLUMBER [email or web address] Anesthesia Postop Eval I: Fluid Summary Crystalloid volume administer 500 10/23/23 09:10 PLUMBER [email or web address] (ml) Colloids volume administered ( ml) Blood Product volume administered (ml) Total IV fluid infused 500 10/23/23 09:10 PLUMBER [email or web address] Anesthesia Postop Eval I: Summary Notes Anesthesia Complication No 10/23/23 09:10 PLUMBER [email or web address] Anesthesia Complication Comment: Post-operative progress note Anesthesia: Postop Eval II Evaluation Mental status: Awake and Calm Pain Level: 0 nausea: No Vomiting: No Complications Anesthesia Complication: No
--- NOTE | 2023-10-23 12:49 | PCM.POSTANE2 ---
Anesthesia Postop Eval I Sum Postop Eval Completion status Anesthesia document: Postop Eval 1 completed: Yes Anesthesia Postop Eval I Summary Anesthesia Postop Eval I Summary: Anesthesia Postop Eval I: Assessment Summary Airway patent Yes 10/23/23 09:10 [email or web address] Spontaneous unlabored Yes 10/23/23 09:10 [email or web address] respirations Mental status nausea No 10/23/23 09:10 [email or web address] Vomiting No 10/23/23 09:10 [email or web address] Anesthesia Postop Eval I: Fluid Summary Crystalloid volume administer 500 10/23/23 09:10 [email or web address] (ml) Colloids volume administered ( ml) Blood Product volume administered (ml) Total IV fluid infused 500 10/23/23 09:10 [email or web address] Anesthesia Postop Eval I: Summary Notes Anesthesia Complication No 10/23/23 09:10 [email or web address] Anesthesia Complication Comment: Post-operative progress note Anesthesia: Postop Eval II Evaluation Mental status: Awake and Calm Pain Level: 0 nausea: No Vomiting: No Complications Anesthesia Complication: No
== END 2023-10-23 09:41 | disposition home or self-care (01) ==
LOC: EN 07:45 → AC 07:46
PROVIDERS: PCP Family Medicine; Referring Provider Family Medicine; Visit Provider Surgery
PROC: 0DJD8ZZ Inspection of Lower Intestinal Tract, Via Natural or Artificial Opening Endoscopic (ICD-10-PCS; CPT 45378; principal; 2023-10-23 08:55)
DX: Z12.11 Encounter for screening for malignant neoplasm of colon (principal); I10 Essential (primary) hypertension; E78.5 Hyperlipidemia, unspecified; Z79.82 Long term (current) use of aspirin; Z79.899 Other long term (current) drug therapy
CPT/HCPCS: G0121; J7120; J2405

== ENCOUNTER → 2024-04-01 | Outpatient (CLI) | payer MEDICARE, SELFPAY ==
[2024-04-01 12:31] LABS: Absolute Lymphocyte Count 1.61 X10^3/uL (0.83-4.51); Absolute Neutrophil Count 6.9 X10^3/uL (2.0-7.7); Basophil# 0.06 X10^3/uL; Basophil% 0.6 % (0-1); Eosinophil# 0.53 X10^3/uL; Eosinophils% 5.3 % (0-5); Hematocrit 38.2 % (40-54); Hemoglobin 12.9 g/dL (13.0-16.5); Lymphocyte # 1.61 X10^3/ul (0.83-4.51); Lymphocyte % 16.2 % (19-41); Mean Corp Hgb Conc 33.8 g/dL (32-36); Mean Corpuscular Hgb 33.4 pg (27.0-32.0); Mean Platelet Vol. 9.8 fl (6.2-12.0); Monocyte# 0.75 X10^3/uL; Monocyte% 7.5 % (0-10); NRBC Flagged by Analyzer 0 % (0-5); Neutrophil # 6.93 X10^3/uL (2.7-7.7); Neutrophil % 69.6 % (47-70); Platelet Count 260 K/mm3 (150-450); RBC Distribution Width CV 12.3 % (11.6-14.6); RBC Distribution Width SD 44.7 fl (35.1-43.9); Red Blood Count 3.86 M/mm3 (4.6-6.2)
== END | disposition home or self-care (01) ==
LOC: MTLAB 10:00
PROVIDERS: PCP Family Medicine; Referring Provider Internal Medicine Pulmonary Disease; Visit Provider Internal Medicine Pulmonary Disease
DX: J45.20 Mild intermittent asthma, uncomplicated (principal)
CPT/HCPCS: 36415; 85025

== ENCOUNTER → 2024-04-22 | Outpatient (CLI) | payer MEDICARE, SELFPAY ==
--- NOTE | 2024-04-22 12:53 | CT_ITS ---
PROCEDURE: CHEST WITHOUT CONTRAST REASON FOR EXAM: Shortness of breath. History of asthma. Currently patient is on low-dose prednisone. TECHNIQUE: Chest CT without contrast. Multiple axial tomographic images were obtained without intravenous contrast administration. Coronal reconstruction was obtained as well. COMPARISON: Comparison is made with prior chest radiograph dated December 02, 2022. FINDINGS: Hardware: None. Lymph nodes: No suspicious mediastinal hilar or axillary lymphadenopathy. Heart and Vasculature: Normal heart size. No pericardial effusion. Thoracic aorta and pulmonary arteries have normal contours; noncontrast technique limits evaluation. Atherosclerotic plaque formation of the aortic arch and descending thoracic aorta. Coronary Artery Calcifications: Present Lungs and Airways: Hyperinflation. Mild degree of increased linear markings at the lung bases suggestive of a mild degree of basilar scarring. Pleura: No pleural effusion. No pneumothorax. Upper Abdomen: Visualized portions of the upper abdominal viscera are unremarkable. Bones: Degenerative changes of the thoracic spine. CT/Chest without Contrast IMPRESSION: Hyperinflation. Mild degree of bibasilar scarring. One or more dose reduction techniques were used (e.g., Automated exposure contr ol, adjustment of the mA and/or kV according to patient size, use of iterative reconstruction technique). Reading Location: [facility]
== END | disposition home or self-care (01) ==
PROVIDERS: PCP Family Medicine; Referring Provider Internal Medicine Pulmonary Disease; Visit Provider Internal Medicine Pulmonary Disease
DX: J45.20 Mild intermittent asthma, uncomplicated (principal)
CPT/HCPCS: 71250

== ENCOUNTER → 2024-04-26 | Outpatient (CLI) | payer MEDICARE, SELFPAY ==
--- NOTE | 2024-04-26 10:20 | BD_ITS ---
PROCEDURE: DEXA BONE DENSITY STUDY REASON FOR EXAM: M, age 78 y/o . Postmenopausal. TECHNIQUE: DEXA scan of the lumbar spine and both hips. COMPARISON: None. FINDINGS: Lumbar Spine (L1-L4): g/cm2 (1.271)/T-score (1.6)/Z-score (2.7) findings are suggestive of normal with a low fracture risk. Left Femur Total: g/cm2 (0.954)/T-score (-0.5)/Z-score (0.4) Left Femoral Neck: g/cm2 (0.915)/T-score (-0.1)/Z-score (1.3) Right Femur Total: g/cm2 (0.950)/T-score (-0.5)/Z-score (0.3) Right Femoral Neck: g/cm2 (0.887)/T-score (-0.3)/Z-score (1 point) BD/Dexa Bone Density Study IMPRESSION: The patient is considered normal as outlined below according to [employer] anization (WHO) criteria with a low fracture risk. Reading Location: [facility]
== END | disposition home or self-care (01) ==
LOC: OPBD 10:03
PROVIDERS: PCP Family Medicine; Referring Provider Internal Medicine Pulmonary Disease; Visit Provider Internal Medicine Pulmonary Disease
DX: Z13.820 Encounter for screening for osteoporosis (principal); Z79.52 Long term (current) use of systemic steroids; Z79.899 Other long term (current) drug therapy
CPT/HCPCS: 77080